=== PATIENT | female | born 1985 | race Caucasian/White ===

== ENCOUNTER → 2016-11-06 | Outpatient (CLI) | payer MEDICAID ==
--- NOTE | 2016-11-06 12:11 | US ---
EXAMINATION TYPE: US OB <= 14 wk fetus DATE OF EXAM: 11/06/2016 COMPARISON: NONE CLINICAL HISTORY: 31-year-old female with O46.91 Spotting. Pt states spotting that started last night , unsure of LMP EXAM PERFORMED: Transabdominal (TA) FINDINGS: EXAM MEASUREMENTS: GESTATIONAL AGE / DATING Physician Established: Not yet established Dates by LMP: (9 weeks/0 days) EDC: 06/11/2017 Dates by First Scan: No prior Dates by Current Scan for: (6 weeks/3 days) EDC: 06/29/2017 MATERNAL ANATOMY Uterus: 7.8 x 5.9 x 8.8 cm Right Ovary: 2.9 x 2.0 x 2.6 cm Left Ovary: 3.1 x 2.8 x 3.5 cm Post CDS / Adnexa: wnl Presence of free fluid: No Presence of corpus luteal cyst: Left Ovary= 2.3 x 1.7 x 2.2 cm Presence of subchorionic bleed: No GESTATION / SURVEY CRL: 0.6 cm 6 weeks/3 days) MSD: wnl Yolk Sac (normal less than 6mm): 3mm Heart Rate: 116 bpm Rhythm: Normal IUP: Viable IUP Date of LMP: Pt unsure, thinks 09/04/2016 Results called to Ros[facility] at [facility] OB at time of exam IMPRESSION: 1. Single live intrauterine with estimated gestational age of 9 weeks 0 days by unsure LMP. Current ultrasound biometry is smaller and frankly discordant (6 weeks 3 days). 2. At this gestational age, a heart rate of 116 BPM may be borderline bradycardic. Short interv al follow-up recommended. 3. Complete survey recommended at 18-20 weeks.
== END ==
LOC: RADUSWWP 11:30
PROVIDERS: ATTEND Obstetrics & Gynecology
DX: O46.91 Antepartum hemorrhage, unspecified, first trimester (principal); Z3A.01 Less than 8 weeks gestation of pregnancy
CPT/HCPCS: 36415; 76801; 84702

== ENCOUNTER → 2016-12-19 | Outpatient (CLI) | payer MEDICAID ==
[2016-12-19 10:32] LABS: CH 33.7; CHCM 34.5; HCT 40.8 % (34.0-46.0); HDW 2.74; HGB 13.5 gm/dL (11.4-16.0); MCH 32.5 pg (25.0-35.0); MCHC 33.1 g/dL (31.0-37.0); MCV 98.2 fL (80.0-100.0); Mean Platelet Volume 7.9; RBC 4.15 m/uL (3.80-5.40); RDW 13.1 % (11.5-15.5); WBC 10.5 k/uL (3.8-10.6)
[2016-12-19 10:53] LABS: Glucose 97 mg/dL (74-99); Non-African American GFR(MDRD) >60 (>60 ml/min/1.73 sqM)
[2016-12-19 11:23] LABS: Hepatitis B Surface Ag Index 0.07
[2016-12-19 16:29] LABS: Treponemal Ab Non-Reactive (Non-Reactive)
== END | disposition home or self-care (01) ==
LOC: LABWHC1 09:59
PROVIDERS: ATTEND Obstetrics & Gynecology
DX: Z34.81 Encounter for supervision of other normal pregnancy, first trimester (principal); R53.83 Other fatigue
CPT/HCPCS: 36415; 82565; 82947; 85027; 86762; 86780; 86850; 86900; 86901; 87340; 87390

== ENCOUNTER → 2017-01-17 | Outpatient (CLI) | payer MEDICAID ==
[2017-01-20 11:25] LABS: Alpha Fetoprotein 30.6 ng/mL; Alpha Fetoprotein (M.O.M) 0.92; B-HCG (M.O.M.) 0.61; Gestational Age (days) 5; Human Chorionic Gonadotropin 16.9 IU/mL; Inhibin A (M.O.M.) 0.87; Interpretation SeeBelow; Maternal Age at EDD (Yrs) 31; Smoker No; Unconjugated Estriol (M.O.M.) 1.54
== END | disposition home or self-care (01) ==
LOC: LABWHC1 08:42
PROVIDERS: ATTEND Obstetrics & Gynecology
DX: Z34.82 Encounter for supervision of other normal pregnancy, second trimester (principal)
CPT/HCPCS: 36415; 82105; 82677; 84702; 86336

== ENCOUNTER → 2017-02-05 | Outpatient (CLI) | payer MEDICAID ==
--- NOTE | 2017-02-05 17:27 | US ---
EXAMINATION TYPE: US OB anatomy transabd DATE OF EXAM: 02/05/2017 COMPARISON: US 10/2016 HISTORY: O36.62X0 Lrge for dates 2nd trimester TECHNIQUE: Transabdominal (TA) EXAM MEASUREMENTS: GESTATIONAL AGE / DATING Physician Established: (19 weeks/3 days) EDC: 06/29/2017 Dates by LMP: (19 weeks/3 days) EDC: 06/29/2017 Dates by First Scan: (19 weeks/3 days) EDC: 06/29/2017 Dates by Current Scan for: (19 weeks/1 days) EDC: 07/01/2017 SURVEY IUP: Single PLACENTA: Anterior PREVIA: Complete LENCHO: 13.7 cm Normal CERVICAL LENGTH (transabdominal: norm > 3.0cm): 3.0 cm BIOMETRY PRESENTATION: Variable LIE: Transverse lie with head maternal Left BPD: 4.2 cm 18 weeks / 6 days HC: 16.0 cm 18 weeks / 6 days AC: 14.1 cm 19 weeks / 4 days FL: 3.0 cm 19 weeks / 2 days ESTIMATED WEIGHT IN GRAMS: 285 grams ESTIMATED WEIGHT IN LBS/OZ: 0 lbs. 10 oz. WEIGHT PERCENTAGE BASED ON ESTABLISHED DATE: 38 % HC/AC: 1.13 Normal FL/AC: 21% HEART RATE: 136 bpm RHYTHM: Normal ANATOMY SEEN (within normal limits): * Lateral Vent (< 1 cm) 0.5 cm * Cisterna Magna (< 1.1 cm) 0.3 cm * Nuchal Fold (< 0.6 cm) 0.3 cm * Cerebellum (varies with age) 1.6 cm Choroid Plexus (bilateral) Midline Falx Cavus Septi Pellucidi Four Chamber Heart Outflow tracts: LVOT/RVOT Stomach Situs Nose / Lips Diaphragm Kidneys (bilateral) Bladder Cord Insert Three Vessel Cord Longitudinal Spine Transverse Spine Arms (bilateral) Legs (bilateral) Viable IUP, measurements congruent with dates. Complete placenta previa visualized. IMPRESSION: There is satisfactory growth compared to 11/06/2016. There is an anterior partial placenta previa.
== END | disposition home or self-care (01) ==
LOC: RADUSWWP 15:53
PROVIDERS: ATTEND Obstetrics & Gynecology
DX: O44.22 Partial placenta previa NOS or without hemorrhage, second trimester (principal); Z3A.19 19 weeks gestation of pregnancy
CPT/HCPCS: 76811

== ENCOUNTER → 2017-03-05 | Outpatient (CLI) | payer MEDICAID ==
--- NOTE | 2017-03-05 13:09 | US ---
EXAMINATION TYPE: US OB limited DATE OF EXAM: 03/05/2017 COMPARISON: US 02/05/2017 CLINICAL HISTORY: Z36 Encounter for screening of mother. Assess previous from previous exam EXAM PERFORMED: OBTA GESTATIONAL AGE / DATING Physician Established: (23 weeks/3 days) EDC: 06/29/2017 No growth performed on today?s study per ordering physician SURVEY PLACENTA: Anterior PREVIA: Low Lying, total previa not seen today, with bladder not fully distended tip of placenta was 1.7cm from internal os CERVICAL LENGTH (transabdominal: norm > 3.0cm): 3.1 cm Ultrasound evidence of cervical incompetence? no HEART RATE: 130 bpm RHYTHM: Normal IMPRESSION: Distal tip of the anteriorly located placenta is low-lying seen 1.7 cm from the internal cervical os with the bladder incompletely distended and 3.4 cm with the bladder distended. Continued surveillance is recommended.
== END | disposition home or self-care (01) ==
LOC: RADUSWWP 10:48
PROVIDERS: ATTEND Obstetrics & Gynecology
DX: O44.42 Low lying placenta NOS or without hemorrhage, second trimester (principal); O26.892 Other specified pregnancy related conditions, second trimester; Z3A.23 23 weeks gestation of pregnancy
CPT/HCPCS: 76815

== ENCOUNTER → 2017-03-26 | Outpatient (CLI) | payer MEDICAID ==
[2017-03-26 10:46] LABS: CH 32.8; CHCM 32.8; HCT 35.5 % (34.0-46.0); HDW 3.01; HGB 11.1 gm/dL (11.4-16.0); MCH 31.6 pg (25.0-35.0); MCHC 31.4 g/dL (31.0-37.0); MCV 100.7 fL (80.0-100.0); Macrocytosis Slight; Mean Platelet Volume 7.8; RBC 3.52 m/uL (3.80-5.40); RDW 14.9 % (11.5-15.5); WBC 10.3 k/uL (3.8-10.6)
== END | disposition home or self-care (01) ==
LOC: LABWHC1 09:09
PROVIDERS: ATTEND Obstetrics & Gynecology
DX: Z34.82 Encounter for supervision of other normal pregnancy, second trimester (principal); Z3A.00 Weeks of gestation of pregnancy not specified
CPT/HCPCS: 36415; 82950; 85027

== ENCOUNTER 2017-04-19 15:10 | Emergency (ER) | payer MEDICAID ==
[2017-04-19 15:15] VITALS: BP 120/65; PULSE 120; RESP 18; TEMP 97.2
--- NOTE | 2017-04-21 05:36 | CDI ---
Documentation Clarification OP Dear Sophie STEEL PA-C, PAC: Please do addendum of ED physician Document. Thank you, Patti Sweet [employer] Applications Manager If you have any question, Please contact coding support specialist at [phone] mtdD
== END 2017-04-19 15:32 | disposition left against medical advice (07) ==
LOC: EC 15:10
DX: O99.89 Other specified diseases and conditions complicating pregnancy, childbirth and the puerperium (principal); Z20.820 Contact with and (suspected) exposure to varicella; Z3A.30 30 weeks gestation of pregnancy
CPT/HCPCS: 99499

== ENCOUNTER 2017-04-19 15:31 | Outpatient (CLI) | payer MEDICAID ==
--- NOTE | 2017-06-14 10:42 | P.MSEPDOC ---
Presenting Problems - Arrival Data Date of Arrival on Unit: 04/19/17 Time of Arrival on Unit: 15:31 Mode of Transport: Ambulatory Medical History - Information : 2 Para: 1 Term: 1 : 0 Abortions: Spontaneous or Elective: 0 Number of Living Children: 1 - Gestational Age Gestational Age by IAN (wks/days): 30 Weeks and 2 Days I agree with the RN Medical Screening Exam: Yes Risk & Benefit of care provided described in d/c instruction: Yes Diagnosis: PREG CARE FOR PATIENT W RECURRENT PREG LOSS, THIRD TRIMESTER ( concern over chicken pox exposure)
== END 2017-04-19 16:07 | disposition home or self-care (01) ==
LOC: FBPOP 15:31
PROVIDERS: ATTEND Obstetrics & Gynecology
DX: O26.23 Pregnancy care for patient with recurrent pregnancy loss, third trimester (principal); Z3A.30 30 weeks gestation of pregnancy
CPT/HCPCS: 86787

== ENCOUNTER 2017-05-27 15:29 | Outpatient (CLI) | payer BC, MEDICAID ==
[2017-05-27 16:08] VITALS: BP 108/69; PULSE 116; RESP 16; TEMP 98.3
--- NOTE | 2017-05-28 07:14 | P.MSEPDOC ---
Presenting Problems - Arrival Data Date of Arrival on Unit: 05/27/17 Time of Arrival on Unit: 15:29 Mode of Transport: Ambulatory - Complaint OB-Reason for Admission/Chief Complaint: Possible Onset of Labor Comment: ctx started about 1500, 2-3 min apart Medical History - Information : 2 Para: 1 Term: 1 : 0 Abortions: Spontaneous or Elective: 0 Number of Living Children: 1 - Gestational Age Gestational Age by IAN (wks/days): 35 Weeks and 2 Days Review of Systems - Review of Systems Constitutional: No problems Breast: No problems ENT: No problems Cardiovascular: No problems Respiratory: No problems Gastrointestinal: No problems Genitourinary: No problems Musculoskeletal: No problems Neurological: No problems Skin: No problems Vital Signs - Temperature Temperature: 98.3 F Temperature Source: Temporal Artery Scan - Pulse Right Pulse Rate: 116 Pulse Assessment Method: Automatic Cuff - Respirations Respiratory Rate: 16 Oxygen Delivery Method: Room Air O2 Sat by Pulse Oximetry: 97 - Blood Pressure Right Arm Blood Pressure: 108/69 Blood Pressure Mean: 82 Blood Pressure Source: Automatic Cuff Medical Screen Scoring (Pre) - Cervical Exam Dilation: 1-3 cm = 1 Effacement: More than 50% = 2 Membranes: Intact - Uterine Contractions Frequency: > or = 36 weeks =2 Duration: > 40 seconds = 2 Intensity: N/A - Maternal Vital Signs Maternal Temperature: N/A Maternal Blood Pressure: N/A Signs of Preeclampsia: N/A Maternal Respirations: N/A - Pain Assessment Pain Location and Character: Back Pain Scale Used: Numeric (1 - 10) Pain Intensity: 8 Pain Management Goal: 2 Pain Description: *Acute, Tightness Pain Frequency: Intermittent Pain Duration: 30 Pain Duration Units: Minutes Pain Behavior: None Exhibited Pain Aggravating Factors: Contractions - Maternal Trauma Maternal Trauma: N/A - Assessment Baseline FHR: 130 Heart Rate - NICHD Category: Category I (Normal) = 0 NST: Reactive Position: N/A Station: N/A - Total Score Total Score (Pre): 7 - Level of Risk Level of Risk: Medium (6-9) Medical Screen Scoring (Post) - Cervical Exam Dilation: 1-3 cm = 1 Effacement: More than 50% = 2 - Uterine Contractions Frequency: > 5 minutes apart = 1 Duration: N/A - Assessment Heart Rate: 140 Heart Rate - NICHD Category: Category I (Normal) = 0 NST: Reactive - Total Score Total Score (Post): 4 - Post Treatment Level of Risk Post Treatment Level of Risk: Low (0-5) Physician Notification (Post) - Physician Notified Physician Notified Date: 05/27/17 Physician Notified Time: 17:02 Spoke With: Christie New Order Received: Yes (Discharge to home) - Notification Comment Comment: no cervical environmental change analyst 1 hour, contractions spacing out and less intense Disposition - Disposition OB Disposition: Discharge to home, Written follow up instructions reviewed Discharge Date: 05/27/17 Discharge Time: 17:05 I agree with the RN Medical Screening Exam: Yes Risk & Benefit of care provided described in d/c instruction: Yes Diagnosis: FALSE LABOR BEFORE 37 COMPLETED WEEKS OF GEST, THIRD TRI
== END 2017-05-27 17:05 | disposition home or self-care (01) ==
LOC: FBPOP 15:29
PROVIDERS: ATTEND Obstetrics & Gynecology
DX: O47.03 False labor before 37 completed weeks of gestation, third trimester (principal); Z3A.35 35 weeks gestation of pregnancy
CPT/HCPCS: 59025; 99213

== ENCOUNTER 2017-06-22 01:50 | Inpatient (IN) | payer BC, MEDICAID ==
[2017-06-22] MEDS ORDERED: CARBOPROST TROMETHAMINE 250 MCG/ML 1 ML AMP IM PRN (02:20)
[2017-06-22] MEDS ORDERED: TERBUTALINE 1 MG/ML VIAL SQ PRN (02:20)
[2017-06-22] MEDS ORDERED: OXYTOCIN 10 UNIT/ML 1 ML VIAL IM PRN (02:20)
[2017-06-22] MEDS ORDERED: METHYLERGONOVINE 0.2 MG/ML 1 ML AMP IM PRN (02:20)
[2017-06-22] MEDS ORDERED: LIDOCAINE 1% (PF) 10 MG/ML (30 ML SDV) SQ PRN (02:20)
[2017-06-22] MEDS ORDERED: OXYTOCIN 20 UNITS/1000 ML NS 1,000 ML IV SCH (02:30)
[2017-06-22] MEDS ORDERED: LACTATED RINGERS 1,000 ML IV SCH ×2 (02:30)
[2017-06-22 02:57] LABS: Basophils % (A) 0 %; Eosinophils # (A) 0.1 k/uL (0-0.7); Eosinophils % (A) 1 %; HCT 38.2 % (34.0-46.0); HGB 12.5 gm/dL (11.4-16.0); Lymphocytes # (A) 1.9 k/uL (1.0-4.8); Lymphocytes % (A) 17 %; MCH 31.4 pg (25.0-35.0); MCHC 32.7 g/dL (31.0-37.0); MCV 96.1 fL (80.0-100.0); Mean Platelet Volume 7.9; Monocytes # (A) 0.5 k/uL (0-1.0); Monocytes % (A) 4 %; Neutrophils # (A) 8.6 k/uL (1.3-7.7); Neutrophils % (A) 76 %; Platelet Count 232 k/uL (150-450); Poikilocytosis Slight; RBC 3.98 m/uL (3.80-5.40); RDW 14.8 % (11.5-15.5); WBC 11.2 k/uL (3.8-10.6)
[2017-06-22 03:59] VITALS: BMI 29.0
[2017-06-22] MEDS ORDERED: BUPIVACAINE (PF) 0.25% 30 ML VIAL ONE (05:53)
[2017-06-22] MEDS ORDERED: fentaNYL (PF) 50 MCG/ML 5 ML AMP ONE (05:53)
[2017-06-22] MEDS ORDERED: SODIUM CHLORIDE 0.9% 100 ML BAG ONE (05:53)
--- NOTE | 2017-06-22 06:07 | P.HPOB ---
History of Present Illness H&P Date: 06/22/17 Chief Complaint: Leaking fluid. This patient is a pleasant 32-year-old 2 para 1 female estimated date of confinement 06/29/2017 estimated gestational age 39 weeks who presents to labor and delivery with complaints of leaking fluid last evening is found to be grossly ruptured. care is per Dr. Soriano appears to be uncomplicated. 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" History of Any Multi-Drug Resistant Organisms: None Reported Past Surgical History: Appendectomy, Tonsillectomy Past Anesthesia/Blood Transfusion Reactions: No Reported Reaction Past Psychological History: No Psychological Hx Reported Smoking Status: Never smoker Past Alcohol Use History: None Reported Past Drug Use History: None Reported - Past Family History Father Family Medical History: No Reported History Medications and Allergies Home Medications Medication Instructions Recorded Confirmed Type Pnv,Calcium 72/Iron/Folic Acid 1 tab PO DAILY 03/16/16 06/22/17 History [ Plus Tablet] Allergies Allergy/AdvReac Type Severity Reaction Status Date / Time No Known Allergies Allergy Verified 06/22/17 02:11 Exam - Vital Signs Vital signs: Vital Signs Temp Pulse Resp BP 06/22/17 02:11 96.5 F L 98 18 118/76 Intake and Output 06/21/17 06/21/17 06/22/17 14:59 22:59 06:59 Other: Weight 81.647 kg Patient Weight 06/22/17 06:59 Weight 81.647 kg - OBG Physical Exam Abdomen: bowel sounds normal, no diffuse tenderness, no bruit present, no guarding noted, no hepatomegaly, no splenomegaly, no mass Vagina: normal moisture, no discharge Cervix: Cervix is 4 cm dilated approximately 50% effaced -2 station. Uterus: enlarged (Fundal height is consistent with a term .) Results blood work shows she is O positive, rubella immune, RPR nonreactive, hepatitis B negative, group B strep was negative, Glucola was normal at 115. Result Diagrams: 06/22/17 02:35 Abnormal Lab Results - Last 24 Hours (Table) 06/22/17 Range/Units 02:35 WBC 11.2 H (3.8-10.6) k/uL Neutrophils # 8.6 H (1.3-7.7) k/uL Assessment and Plan Assessment: This is a pleasant 32-year-old 2 para 1 female 39-0/7 weeks gestation with premature rupture membranes. No active labor on admission and therefore Pitocin was started for induction/augmentation of labor. Plan is anticipate vaginal delivery. (1) PROM (premature rupture of membranes) Current Visit: Yes Status: Acute Code(s): O42.90 - URSULA ROM, 7TH0 BETW RUPT & ONST LABR, UNSP WEEKS OF GEST SNOMED Code(s): 17517837 (2) Third trimester Current Visit: Yes Status: Acute Code(s): Z34.93 - ENCNTR FOR SUPRVSN OF NORMAL PREG, UNSP, THIRD TRIMESTER SNOMED Code(s): 60149702
[2017-06-22] MEDS ORDERED: BUPIVACAINE (PF) 0.25% 25 ML, fentaNYL (PF) 200 MCG in SODIUM CHLORIDE 0.9% 71 ML EPIDURAL ONE (06:22)
--- NOTE | 2017-06-22 10:59 | P.PROBDLV ---
Vaginal Delivery Note - . Vaginal Delivery Note: Normal vaginal delivery viable female Apgars 9 and 10 delivery time is 1033 hrs. Please see dictated H&P for intimate details of this patient's admission. Brief summary this is a pleasant 32-year-old 2 para 1 female 39 weeks gestation admitted last evening with spontaneous rupture membranes patient is not having any contractions and therefore Pitocin augmentation is done. Patient 's labor progresses and she does get an epidural at 4 cm dilated. Patient's labor continues to progress and she gets complete. Patient pushes the head to the perineum. Posterior perineum is supported and we have controlled delivery of 's head over the intact perineum. There is a nuchal cord which is easily reduced. Bulb suction was done of the mouth and nares. With gentle downward traction we then have deliver the anterior and posterior shoulder and rest this 's body. This is a vigorous viable female infant Apgars are 9 and 10 delivery time was 1033 hrs. After delivery of the the umbilical cords doubly clamped and cut it appears to be trivascular. Placenta spontaneously delivered intact. Estimated blood loss is 100 mL. Inspection of perineum shows a first-degree laceration was repaired with 3-0 Vicryl usual fashion. Good reapproximation is noted. All counts are correct 3. There are no complications. and mother stable delivery room.
[2017-06-22] MEDS ORDERED: ZOLPIDEM 5 MG TAB PO PRN (13:11)
[2017-06-22] MEDS ORDERED: WITCH HAZEL 1 EACH MED..PAD TOPICAL PRN (13:11)
[2017-06-22] MEDS ORDERED: SIMETHICONE 80 MG CHEWABLE PO PRN (13:11)
[2017-06-22] MEDS ORDERED: HYDROCORTISONE 2.5% RECTAL CREAM 30 GM TUBE RECTAL PRN (13:11)
[2017-06-22] MEDS ORDERED: ACETAMINOPHEN TAB 325 MG TAB PO PRN (13:11)
[2017-06-22] MEDS ORDERED: LANOLIN CREAM 5 GM TUBE TOPICAL PRN (13:11)
[2017-06-22] MEDS ORDERED: diphenhydrAMINE 25 MG CAP PO PRN (13:11)
[2017-06-22] MEDS ORDERED: diphenhydrAMINE 50 MG CAP PO PRN (13:11)
[2017-06-22] MEDS ORDERED: diphenhydrAMINE 50 MG/ML 1 ML VIAL IVP PRN ×2 (13:11)
[2017-06-22] MEDS: SENNOSIDES-DOCUSATE SODIUM 1 EACH TAB PO SCH (19:37)
[2017-06-22 20:17] VITALS: RESP 18
[2017-06-22] MEDS: IBUPROFEN 600 MG TAB PO PRN (21:41)
[2017-06-23] MEDS: IBUPROFEN 600 MG TAB PO PRN (04:55)
[2017-06-23 08:07] LABS: Basophils % (A) 0 %; Eosinophils # (A) 0.2 k/uL (0-0.7); Eosinophils % (A) 1 %; HCT 31.5 % (34.0-46.0); HGB 10.3 gm/dL (11.4-16.0); Lymphocytes # (A) 1.9 k/uL (1.0-4.8); Lymphocytes % (A) 15 %; MCH 31.5 pg (25.0-35.0); MCHC 32.8 g/dL (31.0-37.0); MCV 95.9 fL (80.0-100.0); Mean Platelet Volume 8.1; Monocytes # (A) 0.6 k/uL (0-1.0); Monocytes % (A) 5 %; Neutrophils # (A) 9.9 k/uL (1.3-7.7); Neutrophils % (A) 78 %; Platelet Count 193 k/uL (150-450); RBC 3.28 m/uL (3.80-5.40); RDW 14.9 % (11.5-15.5); WBC 12.8 k/uL (3.8-10.6)
--- NOTE | 2017-06-23 08:15 | P.DS ---
Providers Date of admission: 06/22/17 02:10 Expected date of discharge: 06/23/17 Attending physician: Twyla Soriano Primary care physician: Stated None Hospital Course: This is a 32-year-old female 2 para 1 at 39-0/7 weeks who presented with spontaneous rupture of membranes. She delivered vaginally a viable female on 06/22/2017 with scores of 9 at 1 minute and 10 at 5 minutes and weight of 7 lbs. 3 oz. Her course has been uncomplicated. She is breast-feeding. Lochia is decreasing. Pain is fairly well controlled with ibuprofen. Vital signs are stable. Abdomen is soft with fundus firm and nontender. Extremities show negative Homans. Impression is status post vaginal delivery day #1. Plan is to discharge home today. Routine instructions are given. She will be given prescriptions for ibuprofen and a breast pump. She is advised to follow up in the office in 6 weeks for a check. She is advised to call the office if she has any further questions or concerns prior to her appointment time. Procedures: Spontaneous vaginal delivery of a viable female infant on 06/22/2017 Patient Condition at Discharge: Stable Plan - Discharge Summary New Discharge Prescriptions: New Ibuprofen [Motrin] 600 mg PO Q6HR PRN #60 tab PRN Reason: Mild Pain Or Fever >= 100.5 No Action Pnv,Calcium 72/Iron/Folic Acid [ Plus Tablet] 1 tab PO DAILY Discharge Medication List Pnv,Calcium 72/Iron/Folic Acid [ Plus Tablet] 1 tab PO DAILY 03/16/16 [ History] Ibuprofen [Motrin] 600 mg PO Q6HR PRN #60 tab 06/23/17 [Rx] Follow up Appointment(s)/Referral(s): Twyla Soriano DO [Doctor of Osteopathic Medicine] - 6 Weeks Activity/Diet/Wound Care/Special Instructions: Instructions 1. Do not begin any exercise program for 3 weeks. 2. Do not resume sexual relations for 3 weeks or longer if uncomfortable. 3. You may take tub baths or showers at any time. 4. You may use tampons if desired after 3 weeks. 5. Keep the area of episiotomy (stitches) clean and dry. 6. If you are not nursing, wear a good fitting, supportive bra during the day and limit fluid intake for at least 1 week to prevent breast engorgement. 7. Call the office, [phone], within the next week to make appointment for your 6 week checkup if it has not already been made. 8. Report any of the following occurrences to the doctor promptly: a. Heavy, excessive bleeding b. Chills, fever c. Burning or frequency of urination d. Pain or redness and breasts if nursing e. Increasing pain or swelling in episiotomy (stitches). In addition to the above instructions, the following additional should be followed: 1. No heavy lifting or straining (exercising) until after 6 week checkup. 2. Keep abdominal incision clean and dry: You may wear a dressing if more comfortable. 3. Make office appointment for 10 days after going home or as instructed by her doctor. Discharge Disposition: HOME SELF-CARE
[2017-06-23] MEDS: SENNOSIDES-DOCUSATE SODIUM 1 EACH TAB PO SCH (11:03)
[2017-06-23 15:58] VITALS: BP 124/71; PULSE 91; TEMP 97.6
--- NOTE | 2017-06-25 07:14 | P.MSEPDOC ---
Presenting Problems - Arrival Data Date of Arrival on Unit: 06/22/17 Time of Arrival on Unit: 02:20 Mode of Transport: Wheelchair - Complaint OB-Reason for Admission/Chief Complaint: Possible Onset of Labor, Rule Out SROM Comment: SROM at 2245, clear fluid. Medical History - Information : 2 Para: 1 Term: 1 : 0 Abortions: Spontaneous or Elective: 0 Number of Living Children: 1 - Gestational Age Gestational Age by IAN (wks/days): 39 Weeks and 0 Days Review of Systems - Review of Systems Constitutional: No problems Breast: No problems ENT: No problems Cardiovascular: No problems Respiratory: No problems Gastrointestinal: No problems Genitourinary: No problems Musculoskeletal: No problems Neurological: No problems Skin: No problems Vital Signs - Temperature Temperature: 97.6 F Temperature Source: Oral - Pulse Right Sitting Brachial Pulse Rate: 91 Pulse Assessment Method: Automatic Cuff - Respirations Respiratory Rate: 18 Oxygen Delivery Method: Room Air - Blood Pressure Right Arm Sitting Blood Pressure: 124/71 Blood Pressure Mean: 88 Blood Pressure Source: Automatic Cuff Medical Screen Scoring (Pre) - Cervical Exam Dilation: 1-3 cm = 1 Effacement: More than 50% = 2 Membranes: Ruptured = 3 - Uterine Contractions Frequency: > or = 36 weeks =2 Duration: > 40 seconds = 2 - Pain Assessment Pain Scale Used: Numeric (1 - 10) Pain Intensity: 0 - Assessment Baseline FHR: 140 Heart Rate - NICHD Category: Category I (Normal) = 0 NST: Reactive - Total Score Total Score (Pre): 10 - Level of Risk Level of Risk: High (10+) Physician Notification (Pre) - Physician Notified Physician Notified Date: 06/22/17 Physician Notified Time: 02:19 Physician/Practitioner Notifed:: shaista Spoke With: shaista New Order Received: Yes - Notification Comment Comment: admit for labor, start pitocin Disposition - Disposition OB Disposition: Admit, LDRP Suite Discharge Date: 06/23/17 Discharge Time: 18:15 I agree with the RN Medical Screening Exam: Yes Risk & Benefit of care provided described in d/c instruction: Yes Diagnosis: ENCOUNTER FOR FULL-TERM UNCOMPLICATED DELIVERY
== END 2017-06-23 18:15 | disposition home or self-care (01) | DRG 775 ==
LOC: FBPOP 01:50 → 4FBP 02:10
PROVIDERS: ADMIT Obstetrics & Gynecology; ATTEND Obstetrics & Gynecology
PROC: 10E0XZZ Delivery of Products of Conception, External Approach (ICD-10-PCS; principal; 2017-06-22)
PROC: 0HQ9XZZ Repair Perineum Skin, External Approach (ICD-10-PCS; 2017-06-22)
PROC: 00HU33Z Insertion of Infusion Device into Spinal Canal, Percutaneous Approach (ICD-10-PCS; 2017-06-22)
PROC: 3E0R3NZ Introduction of Analgesics, Hypnotics, Sedatives into Spinal Canal, Percutaneous Approach (ICD-10-PCS; 2017-06-22)
DX: O42.92 Full-term premature rupture of membranes, unspecified as to length of time between rupture and onset of labor (principal); O69.81X0 Labor and delivery complicated by cord around neck, without compression, not applicable or unspecified; O70.0 First degree perineal laceration during delivery; Z37.0 Single live birth; Z3A.39 39 weeks gestation of pregnancy; Z90.89 Acquired absence of other organs; Z90.49 Acquired absence of other specified parts of digestive tract
CPT/HCPCS: 59025; 84112; 85025; 88307; 99213

== ENCOUNTER 2017-11-09 21:59 | Emergency (ER) | payer BC ==
[2017-11-09] MEDS ORDERED: ceFAZolin IN SWFI 2 GM/20 ML SYRINGE IVP ONE (23:19)
[2017-11-09] MEDS ORDERED: diphenhydrAMINE 50 MG/ML 1 ML VIAL IVP STA (23:19)
[2017-11-09] MEDS ORDERED: KETOROLAC 30 MG/ML 1 ML VIAL IVP STA (23:19)
[2017-11-09] MEDS ORDERED: ONDANSETRON 4 MG/2 ML VIAL IVP STA (23:19)
[2017-11-09] MEDS ORDERED: SODIUM CHLORIDE 0.9% 1,000 ML IV ONE (23:20)
[2017-11-09 23:50] VITALS: BP 127/80; PULSE 115; RESP 16; TEMP 98.7
[2017-11-10 00:15] LABS: Basophils % (A) 0 %; Eosinophils % (A) 0 %; HCT 41.9 % (34.0-46.0); Lymphocytes # (A) 0.6 k/uL (1.0-4.8); Lymphocytes % (A) 6 %; MCH 31.2 pg (25.0-35.0); MCHC 33.4 g/dL (31.0-37.0); MCV 93.4 fL (80.0-100.0); Mean Platelet Volume 7.7; Monocytes # (A) 0.2 k/uL (0-1.0); Monocytes % (A) 2 %; Neutrophils # (A) 10.1 k/uL (1.3-7.7); Neutrophils % (A) 92 %; Platelet Count 313 k/uL (150-450); RBC 4.49 m/uL (3.80-5.40); WBC 10.9 k/uL (3.8-10.6)
--- NOTE | 2017-11-10 00:16 | ED ---
Skin/Abscess/FB HPI - General Chief complaint: Skin/Abscess/Foreign Body Stated complaint: bee sting on leg Time Seen by Provider: 11/09/17 22:56 Source: patient, RN notes reviewed, old records reviewed Mode of arrival: ambulatory Limitations: no limitations - History of Present Illness Initial comments: This Patient is a 32-year-old female presents resorption she will complain of a bee sting yesterday evening on her right upper thigh. Patient reports that she was seen in urgent care yesterday and received IM Solu-Medrol and did not start her prescription for the antibiotic or steroid. Patient reports that it seems to be worsening the area of redness and swelling. She also complains of a mild headache at this time. She reports no fever but states she's felt somewhat dizzy and lightheaded. Patient denies any other symptoms at this time. - Related Data Home Medications Medication Instructions Recorded Confirmed Pnv,Calcium 72/Iron/Folic Acid 1 tab PO DAILY 03/16/16 06/22/17 [ Plus Tablet] Previous Rx's Medication Instructions Recorded Ibuprofen [Motrin] 600 mg PO Q6HR PRN #60 tab 06/23/17 EPINEPHrine 0.15 mg IJ ONCE #1 auto.injct 11/10/17 Famotidine [Pepcid] 20 mg PO BID #10 tablet 11/10/17 diphenhydrAMINE [Benadryl] 50 mg PO QID PRN #20 capsule 11/10/17 predniSONE 50 mg PO DAILY #4 tablet 11/10/17 Allergies Allergy/AdvReac Type Severity Reaction Status Date / Time No Known Allergies Allergy Verified 06/22/17 02:11 Review of Systems ROS Statement: Those systems with pertinent positive or pertinent negative responses have been documented in the HPI. ROS Other: All systems not noted in ROS Statement are negative. 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 Alert and oriented. No significant distress. Limitations: no limitations General appearance: alert, in no apparent distress Head exam: Present: atraumatic, normocephalic, normal inspection Eye exam: Present: normal appearance, PERRL, EOMI. Absent: scleral icterus, conjunctival injection, periorbital swelling ENT exam: Present: normal exam, mucous membranes moist Neck exam: Present: normal inspection. Absent: tenderness, meningismus, lymphadenopathy Respiratory exam: Present: normal lung sounds bilaterally. Absent: respiratory distress, wheezes, rales, rhonchi, stridor Cardiovascular Exam: Present: regular rate, normal rhythm, normal heart sounds. Absent: systolic murmur, diastolic murmur, rubs, gallop, clicks GI/Abdominal exam: Present: soft, normal bowel sounds. Absent: distended, tenderness, guarding, rebound, rigid Extremities exam: Present: normal inspection, full ROM, normal capillary refill , other (Patient has a 6" x 5" area of cellulitis on the lateral aspect of the right upper thigh. The area has grown since she initially had a bee sting.). Absent: tenderness, pedal edema, joint swelling, calf tenderness Back exam: Present: normal inspection Neurological exam: Present: alert, oriented X3, CN II-XII intact Psychiatric exam: Present: normal affect Course Vital Signs 11/09/17 11/09/17 22:17 23:49 Temperature 98.5 F 98.7 F Pulse Rate 104 H 115 H Respiratory 20 16 Rate Blood Pressure 150/81 127/80 O2 Sat by Pulse 98 100 Oximetry Medical Decision Making - Medical Decision Making Patient is a 32-year-old female chief complaint of a bee sting on the right side. She is concerned because the area of redness increased over the past 24 hours. She started received IM Solu-Medrol. Patient has not taken any other steroids or antibiotics as of this time. Patient does have some area of swelling appears to be overlying cellulitis from the ALLERGIC reaction. I hood a line around this area. I did start the Patient on IV fluids and gave her 2 g of Kefzol as well as Toradol and Reglan and Benadryl. She did complain of a minor headache as well. Patient lab work does show evidence of some mild leukocytosis of 10 with a left shift. At this time we'll treat the Patient with Keflex for overlying cellulitis and discussed continuing steroids Benadryl and Pepcid for the histamine reaction. Patient understood history plan will comply. Return parameters were discussed. - Lab Data Result diagrams: 11/09/17 23:45 11/09/17 23:45 Lab Results 11/09/17 11/09/17 Range/Units 23:45 23:45 WBC 10.9 H (3.8-10.6) k/uL RBC 4.49 (3.80-5.40) m/uL Hgb 14.0 (11.4-16.0) gm/dL Hct 41.9 (34.0-46.0) % MCV 93.4 (80.0-100.0) fL MCH 31.2 (25.0-35.0) pg MCHC 33.4 (31.0-37.0) g/dL RDW 13.0 (11.5-15.5) % Plt Count 313 (150-450) k/uL Neutrophils % 92 % Lymphocytes % 6 % Monocytes % 2 % Eosinophils % 0 % Basophils % 0 % Neutrophils # 10.1 H (1.3-7.7) k/uL Lymphocytes # 0.6 L (1.0-4.8) k/uL Monocytes # 0.2 (0-1.0) k/uL Eosinophils # 0.0 (0-0.7) k/uL Basophils # 0.0 (0-0.2) k/uL Sodium 139 (137-145) mmol/L Potassium 4.5 (3.5-5.1) mmol/L Chloride 109 H (98-107) mmol/L Carbon Dioxide 20 L (22-30) mmol/L Anion Gap 10 mmol/L BUN 12 (7-17) mg/dL Creatinine 0.60 (0.52-1.04) mg/dL Est GFR (CKD-EPI)AfAm >90 (>60 ml/min/1.73 sqM) Est GFR (CKD-EPI)NonAf >90 (>60 ml/min/1.73 sqM) Glucose 185 H (74-99) mg/dL Calcium 9.7 (8.4-10.2) mg/dL Total Bilirubin 0.3 (0.2-1.3) mg/dL AST 25 (14-36) U/L ALT 38 (9-52) U/L Alkaline Phosphatase 92 (38-126) U/L Total Protein 7.4 (6.3-8.2) g/dL Albumin 4.5 (3.5-5.0) g/dL Disposition Clinical Impression: Left leg cellulitis, Insect sting allergy, current reaction, Headache Disposition: HOME SELF-CARE Condition: Good Instructions: Cellulitis (ED) Additional Instructions: If the area of redness worsens up next 24-48 hours please return to emergency department for further evaluation. Take antibiotics and steroids and an history medicine as prescribed. Ice packs over the area. Return to emergency department if any alarming signs or symptoms occur. Prescriptions: diphenhydrAMINE [Benadryl] 50 mg PO QID PRN #20 capsule PRN Reason: Itching EPINEPHrine 0.15 mg IJ ONCE #1 auto.injct Famotidine [Pepcid] 20 mg PO BID #10 tablet predniSONE 50 mg PO DAILY #4 tablet Is patient prescribed a controlled substance at d/c from ED?: No When asked, does pt state using other controlled substances?: No If prescribed controlled substance>3 days was MAPS reviewed?: No If opioid is for acute pain is fill amount 7 days or less?: No If Rx opioid, was Start Talking consent form obtained?: No Referrals: Hitesh Meyers MD [Primary Care Provider] - 1-2 days Time of Disposition: 00:59
[2017-11-10 00:26] LABS: ALT 38 U/L (9-52); AST 25 U/L (14-36); Albumin 4.5 g/dL (3.5-5.0); Alkaline Phosphatase 92 U/L (38-126); Anion Gap 10 mmol/L; Blood Urea Nitrogen 12 mg/dL (7-17); Calcium 9.7 mg/dL (8.4-10.2); Carbon Dioxide 20 mmol/L (22-30); Chloride 109 mmol/L (98-107); Glucose 185 mg/dL (74-99); Potassium 4.5 mmol/L (3.5-5.1); Sodium 139 mmol/L (137-145); Total Bilirubin 0.3 mg/dL (0.2-1.3); Total Protein 7.4 g/dL (6.3-8.2)
[2017-11-10] MEDS ORDERED: ORPHENADRINE 30 MG/ML 2 ML VIAL IVP STA (01:02)
[2017-11-10] MEDS ORDERED: ACETAMINOPHEN TAB 500 MG TAB PO STA (01:02)
== END 2017-11-10 02:01 | disposition home or self-care (01) ==
LOC: EC 21:59
DX: L03.116 Cellulitis of left lower limb (principal); R51 Headache; T63.441A Toxic effect of venom of bees, accidental (unintentional), initial encounter; D72.829 Elevated white blood cell count, unspecified; Z53.20 Procedure and treatment not carried out because of patient's decision for unspecified reasons
CPT/HCPCS: 36415; 80053; 85025; 87040; 99284; 96374; 96375 ×3; 96361 ×2; J1200; J2405; J1885; J0690

== ENCOUNTER → 2019-06-24 | Outpatient (CLI) | payer BC ==
--- NOTE | 2019-06-24 10:29 | XR ---
EXAMINATION TYPE: XR chest 2V DATE OF EXAM: 06/24/2019 COMPARISON: NONE HISTORY: Cough, mold contact TECHNIQUE: Frontal and lateral views of the chest are obtained. FINDINGS: There is no focal air space opacity, pleural effusion, or pneumothorax seen. The cardiac silhouette size is within normal limits. The osseous structures are intact. Patient is rotated. IMPRESSION: No acute cardiopulmonary process.
== END | disposition home or self-care (01) ==
LOC: RADXRMAIN 09:18
PROVIDERS: ATTEND Nurse Practitioner Family
DX: R05 Cough (principal); Z77.120 Contact with and (suspected) exposure to mold (toxic)
CPT/HCPCS: 71046

== ENCOUNTER → 2020-02-21 | Outpatient (CLI) | payer OTHER | END | disposition home or self-care (01) | LOC: LABMAIN 18:07 | PROVIDERS: ATTEND Internal Medicine Clinical Cardiac Electrophysiology | DX: Z53.9 Procedure and treatment not carried out, unspecified reason (principal) ==

== ENCOUNTER 2020-05-11 12:55 | Emergency (ER) | payer BC ==
[2020-05-11 13:12] VITALS: BP 126/81; PULSE 97; RESP 18; TEMP 98.4
--- NOTE | 2020-05-11 13:52 | ED ---
General Adult HPI - General Chief complaint: Needlestick/Exposure Stated complaint: [facility]-Needlestick Time Seen by Provider: 05/11/20 13:12 Source: patient Mode of arrival: ambulatory Limitations: no limitations - History of Present Illness Initial comments: 34-year-old female presents to the emergency room for a chief complaint of needle stick injury. 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 Patient reports she had a needle stick to the left second digit distal phalanx at work. The patient does have information for source blood. Patient reports she did see [facility] and was told to come to the emergency room for a blood draw. Patient has no other complaints at this time including shortness of breath, chest pain, abdominal pain, nausea or vomiting, headache, or visual changes. - Related Data Home Medications Medication Instructions Recorded Confirmed Pnv,Calcium 72/Iron/Folic Acid 1 tab PO DAILY 03/16/16 06/22/17 [ Plus Tablet] Previous Rx's Medication Instructions Recorded Ibuprofen [Motrin] 600 mg PO Q6HR PRN #60 tab 06/23/17 EPINEPHrine 0.15 mg IJ ONCE #1 auto.injct 11/10/17 Famotidine [Pepcid] 20 mg PO BID #10 tablet 11/10/17 diphenhydrAMINE [Benadryl] 50 mg PO QID PRN #20 capsule 11/10/17 predniSONE 50 mg PO DAILY #4 tablet 11/10/17 Allergies Allergy/AdvReac Type Severity Reaction Status Date / Time No Known Allergies Allergy Verified 05/11/20 13:11 Review of Systems ROS Statement: Those systems with pertinent positive or pertinent negative responses have been documented in the HPI. ROS Other: All systems not noted in ROS Statement are negative. 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" History of Any Multi-Drug Resistant Organisms: None Reported Past Surgical History: Appendectomy, Tonsillectomy Past Anesthesia/Blood Transfusion Reactions: No Reported Reaction Past Psychological History: No Psychological Hx Reported Past Alcohol Use History: None Reported Past Drug Use History: None Reported - Past Family History Father Family Medical History: No Reported History General Exam Limitations: no limitations General appearance: alert Head exam: Present: atraumatic Eye exam: Present: normal appearance ENT exam: Present: normal exam, mucous membranes moist Neck exam: Present: normal inspection, full ROM Respiratory exam: Absent: respiratory distress Extremities exam: Present: other (Patient has no evidence for injury in the left second digit. Full range of motion. No erythema. No laceration or puncture wound noted.) Course Vital Signs 05/11/20 13:08 Temperature 98.4 F Pulse Rate 97 Respiratory 18 Rate Blood Pressure 126/81 O2 Sat by Pulse 99 Oximetry Medical Decision Making - Medical Decision Making Patient's blood was drawn. Source blood will be drawn by lab and tested for rapid HIV. Patient will be updated on these results either by lab or the ER. Patient is also aware she can follow-up with them. Patient is progressing to return to work in the [employer]. Disposition Clinical Impression: Needlestick injury accident Disposition: HOME SELF-CARE Condition: Good Instructions (If sedation given, give patient instructions): Needle Stick Injuries (ED) Additional Instructions: Please follow-up with employee health. They sometimes want to repeat a blood draw in 6 weeks to months. Follow up on result of source blood. Return to the ER for any worsening symptoms. Is patient prescribed a controlled substance at d/c from ED?: No Referrals: Hitesh Meyers MD [Primary Care Provider] - 1-2 days Time of Disposition: 13:51
== END 2020-05-11 14:20 | disposition home or self-care (01) ==
LOC: EC 12:55
DX: S69.92XA Unspecified injury of left wrist, hand and finger(s), initial encounter (principal); Z90.49 Acquired absence of other specified parts of digestive tract; W46.0XXA Contact with hypodermic needle, initial encounter
CPT/HCPCS: 99282